=== PATIENT | male | born 1955 | race Caucasian/White ===

== ENCOUNTER 2019-03-21 03:05 | Emergency (ER) | payer OTHER ==
[~2019-03-21] VITALS: Ht 170.2 cm; Wt 93.0 kg
[~2019-03-21 03:05] MED LIST: HYDR-1189 PO
[2019-03-21 03:10] VITALS: BP_SYST 155
--- NOTE | 2019-03-21 03:25 | NUR ---
Patient to ER bed 4 to gown for evaluation. Side rails up. Report given to PRADEEP LIMON(REGISTRY).
--- NOTE | 2019-03-21 03:39 | NUR ---
ER at bedside examining patient.
[2019-03-21] MEDS ORDERED: BUPIVACAINE /PF 0.25% 30 ML VIAL INJ ONE (04:15)
[2019-03-21] MEDS ORDERED: TRIAMCINOLONE ACETONIDE 40 MG/ML IM ONE (04:15)
--- NOTE | 2019-03-21 05:12 | NUR ---
Patient given written and verbal discharge instructions and verbalizes understanding. ER MD discussed with patient the results and treatment provided. Patient in stable condition. ID arm band removed. No Rx of given. Patient educated on pain management and to follow up with PMD. Pain Scale 3/10.Pt sts feeling better. Opportunity for questions provided and answered. Medication side effect fact sheet provided.
[2019-03-21 05:13] VITALS: BP_SYST 149
== END 2019-03-21 05:12 | disposition home or self-care (01) ==
LOC: SED 03:05
DX: M25.511 Pain in right shoulder (principal); I10 Essential (primary) hypertension; E78.5 Hyperlipidemia, unspecified
CPT/HCPCS: 96372; 99283; J3301; J3490

== ENCOUNTER 2020-03-30 21:24 | Emergency (ER) | payer OTHER ==
[~2020-03-30] VITALS: Ht 170.2 cm; Wt 93.0 kg
[2020-03-30 21:39] VITALS: BP_SYST 139
[2020-03-30 23:16] LABS: BILIRUBIN,URINE NEGATIVE (NEGATIVE); BLOOD, URINE 1+ (NEGATIVE); CLARITY/URINE CLEAR (CLEAR); COLOR,URINE YELLOW (YELLOW); GLUCOSE,URINE NEGATIVE (NEGATIVE); KETONES,URINE NEGATIVE (NEGATIVE); LEUKOCYTE ESTERASE ,URINE NEGATIVE (NEGATIVE); NITRITE, URINE NEGATIVE (NEGATIVE); PROTEIN URINE 1+ (NEGATIVE); UROBILINOGEN,URINE 0.2 (0.2-1.0)
[2020-03-30 23:25] LABS: BACTERIA,URINE RARE /HPF (None Seen)
[2020-03-31] MEDS ORDERED: MAGNESIUM CITRATE 300 ML ORAL SOLUTION ONE (01:03)
[2020-03-31 01:12] VITALS: BP_SYST 128
[2020-03-31] MEDS: MAGNESIUM CITRATE 300 ML ORAL SOLUTION PO ONE (01:14)
== END 2020-03-31 01:12 | disposition home or self-care (01) ==
LOC: SED 21:24
DX: R10.31 Right lower quadrant pain (principal)
CPT/HCPCS: 76376; 81000-TC; 99284

== ENCOUNTER 2021-12-15 12:23 | Emergency (ER) | payer OTHER ==
[~2021-12-15] VITALS: Ht 170.2 cm; Wt 83.9 kg
[~2021-12-15 12:23] MED LIST changes: -HYDR-1189 PO; +HYDR-3919 PO
[2021-12-15 12:29] VITALS: BP_SYST 149
--- NOTE | 2021-12-15 12:35 | NUR ---
Patient to ER bed 08 to gown for evaluation. Side rails up.
[2021-12-15] MEDS ORDERED: MORPHINE 2 MG/ML INJ. SYRINGE IVP ONE (13:00)
--- NOTE | 2021-12-15 13:00 | NUR ---
Liz jojewel in ED - 12/15/21 at 1455 by [email or web address] ER at bedside examining patient.DUKE Bender at bedside examining patient.
--- NOTE | 2021-12-15 13:35 | NUR ---
ER at bedside examining patient.
[2021-12-15 13:39] LABS: CALCIUM 8.2 mg/dL (8.4-11.0); CREATININE 1.59 mg/dL (0.55-1.30); POTASSIUM 3.8 mmol/L (3.5-5.1)
[2021-12-15 13:45] LABS: ALBUMIN 2.9 g/dL (3.4-4.8); TOTAL BILIRUBIN 1.4 mg/dL (0.0-1.0)
[2021-12-15 13:46] LABS: BASOPHILS % (AUTO) 0.2 % (0.0-2.0); EOSINOPHILS # (AUTO) 0.1 K/uL (0.0-0.4); EOSINOPHILS % (AUTO) 0.5 % (0.0-4.0); HEMATOCRIT 28.8 % (36-54); LYMPHOCYTES # (AUTO) 1.7 K/uL (1.0-5.5); LYMPHOCYTES % (AUTO) 12.5 % (20.5-51.5); MEAN CORPUSCULAR VOLUME 84 fL (79.0-98.0); MONOCYTES # (AUTO) 2.5 K/uL (0.0-1.0); MONOCYTES % (AUTO) 18.9 % (1.7-9.3); NEUTROPHILS % (AUTO) 67.9 % (40.0-70.0); PLATELET COUNT (AUTO) 159 K/uL (130-430); RED BLOOD CELL COUNT(AUTO) 3.43 MIL/uL (4.2-6.2); RED CELL DISTRIBUTION WIDTH 16.7 % (9.0-15.0); WHITE BLOOD COUNT (AUTO) 13.3 K/uL (4.8-10.8)
[2021-12-15] MEDS ORDERED: LIDOCAINE/EPI 1% 1:100000 20 ML VIAL INJ ONE (14:30)
--- NOTE | 2021-12-15 14:45 | NUR ---
MD Guerrier bedside I&D procedure. Pt tolerated well. EVELIO.
[2021-12-15] MEDS ORDERED: PIPERACILLIN/TAZO 3.375 GM in NS 50 ML IV ONE (15:15)
[2021-12-15] MEDS ORDERED: MORPHINE 4 MG INJ. 4 MG/ML VIAL IVP ONE (15:15)
[2021-12-15] MEDS ORDERED: PIPERACILLIN/TAZOBACTAM 3.375 GM/VIAL (ZOSYN) IV ONE (15:24)
[2021-12-15] MEDS ORDERED: NAPR-690 PO (17:10)
[2021-12-15] MEDS ORDERED: ANURH RC (17:10)
[2021-12-15] MEDS ORDERED: CEPH-548 PO (17:10)
[2021-12-15] MEDS ORDERED: LIDOCAINE 2% JELLY UROJECT 10 ML MM ONE (17:26)
[2021-12-15] MEDS ORDERED: LIDOCAINE JELLY 5 ML TUBE MM ONE (17:30)
--- NOTE | 2021-12-15 17:41 | NUR ---
Patient given written and verbal discharge instructions and verbalizes understanding. ER MD discussed with patient the results and treatment provided. Patient in stable condition. ID arm band removed. IV catheter removed intact and dressing applied, no active bleeding. Rx of Naproxen, Cephalexin and Anusol given. Patient educated on pain management and to follow up with PMD. Opportunity for questions provided and answered. Medication side effect fact sheet provided.
[2021-12-15 19:16] VITALS: BP_SYST 182
== END 2021-12-15 19:16 | disposition home or self-care (01) ==
LOC: SED 12:23
DX: K61.1 Rectal abscess (principal); K62.89 Other specified diseases of anus and rectum; Z79.899 Other long term (current) drug therapy
CPT/HCPCS: 46050; 99285; 96365; 96375; 80053; 82150; 83690; 85025; 87040; 36415; J2543; J2270 ×2